=== PATIENT | male | born 1950 | race African-American/Black ===

== ENCOUNTER 2020-10-02 18:46 | Emergency (ER) | payer MEDICAID, MEDICARE ==
[~2020-10-02] VITALS: Ht 165.1 cm; Wt 64.0 kg
[2020-10-02 20:21] LABS: BASOPHILS % 1.7 % (0.0-2.0); EOSINOPHILS % 0.6 % (0.0-5.0); HEMATOCRIT. 44.3 % (42.0-52.0); HEMOGLOBIN. 14.7 g/dL (14.0-18.0); LYMPHOCYTES % 43.3 % (20.0-50.0); MEAN CORPUSCULAR HEMOGLOBIN 28.2 pg (28.0-32.0); MONOCYTES % 8.7 % (2.0-8.0); NEUTROPHILS % 45.7 % (40.0-76.0); PLATELET 224 x1000/uL (130-400); RED BLOOD CELL COUNT 5.22 mill/uL (4.7-6.1); RED CELL DISTRIBUTION WIDTH 20.5 % (11.6-14.6)
[2020-10-02 20:27] LABS: CHLORIDE 115 mEq/L (98-107)
[2020-10-02 20:42] LABS: ETHANOL BLOOD 299 mg/dL
[2020-10-02] MEDS ORDERED: LORAZEPAM 2MG/ML CPJ IM ONE (21:30)
[2020-10-02] MEDS ORDERED: HALOPERIDOL LACTATE 5MG/ML VIAL IM ONE (21:30)
[2020-10-02 21:33] LABS: CLARITY URINE CLEAR (CLEAR); COLOR URINE YELLOW (YELLOW); KETONES URINE NEGATIVE (NEGATIVE); LEUKOCYTE ESTERASE URINE NEGATIVE (NEGATIVE); NITRITE URINE NEGATIVE (NEGATIVE); OCCULT BLOOD URINE NEGATIVE (NEGATIVE); PROTEIN URINE NEGATIVE (NEGATIVE); SPECIFIC GRAVITY URINE 1.002 (1.005-1.030); UROBILINOGEN URINE 0.2 E.U./dL (0.2-1.0)
[2020-10-02 21:42] LABS: *BARBITURATES SCREEN URINE NEGATIVE (NEGATIVE)
[2020-10-02 21:43] LABS: *AMPHETAMINES SCREEN URINE NEGATIVE (NEGATIVE); *BENZODIAZEPINES SCREEN URINE NEGATIVE (NEGATIVE); *COCAINE SCREEN URINE NEGATIVE (NEGATIVE); CANNABINOID URINE SCREEN NEGATIVE (NEGATIVE); METHADONE URINE SCREEN NEGATIVE (NEGATIVE); OPIATES URINE SCREEN NEGATIVE (NEGATIVE); PHENCYCLIDINE URINE SCREEN NEGATIVE (NEGATIVE)
[2020-10-03] MEDS ORDERED: OLANZAPINE 10 MG/VIAL IM ONE
[2020-10-03 11:36] VITALS: BP 154/95
== END 2020-10-03 11:42 | disposition home or self-care (01) ==
LOC: ER 18:46
DX: T51.0X1A Toxic effect of ethanol, accidental (unintentional), initial encounter (principal); R45.851 Suicidal ideations; Y90.8 Blood alcohol level of 240 mg/100 ml or more; Z78.1 Physical restraint status; Y92.018 Other place in single-family (private) house as the place of occurrence of the external cause
CPT/HCPCS: 36415; 80053; 80305; 80307; 80320; 80329; 81003; 85025; 87426; 96372; 99285; J1630; J2060; J3490; G0480

== ENCOUNTER 2020-11-02 23:04 | Emergency (ER) | payer MEDICARE, OTHER ==
[~2020-11-02] VITALS: Ht 167.6 cm; Wt 71.0 kg
[2020-11-03 00:20] LABS: BASOPHILS % 0.2 % (0.0-2.0); EOSINOPHILS % 3.4 % (0.0-5.0); HEMOGLOBIN. 12.5 g/dL (14.0-18.0); LYMPHOCYTES % 61.1 % (20.0-50.0); MEAN CORPUSCULAR HEMOGLOBIN 28.6 pg (28.0-32.0); MEAN CORPUSCULAR VOLUME 84.8 fL (80.0-94.0); MEAN PLATELET VOLUME 8.6 fl (7.4-10.4); MONOCYTES % 14.7 % (2.0-8.0); NEUTROPHILS % 20.6 % (40.0-76.0); PLATELET 213 x1000/uL (130-400); RED BLOOD CELL COUNT 4.36 mill/uL (4.7-6.1); RED CELL DISTRIBUTION WIDTH 17.5 % (11.6-14.6)
[2020-11-03 00:29] LABS: CHLORIDE 113 mEq/L (98-107)
[2020-11-03 00:31] LABS: ETHANOL BLOOD 268 mg/dL
[2020-11-03 00:35] LABS: CLARITY URINE CLEAR (CLEAR); COLOR URINE YELLOW (YELLOW); KETONES URINE TRACE (NEGATIVE); LEUKOCYTE ESTERASE URINE NEGATIVE (NEGATIVE); NITRITE URINE NEGATIVE (NEGATIVE); OCCULT BLOOD URINE NEGATIVE (NEGATIVE); PH URINE 5.5 (4.5-8.0); PROTEIN URINE NEGATIVE (NEGATIVE); SPECIFIC GRAVITY URINE 1.017 (1.005-1.030); UROBILINOGEN URINE 0.2 E.U./dL (0.2-1.0)
[2020-11-03 00:51] LABS: *AMPHETAMINES SCREEN URINE NEGATIVE (NEGATIVE); CANNABINOID URINE SCREEN NEGATIVE (NEGATIVE); OPIATES URINE SCREEN NEGATIVE (NEGATIVE); PHENCYCLIDINE URINE SCREEN NEGATIVE (NEGATIVE)
[2020-11-03 00:52] LABS: *BARBITURATES SCREEN URINE NEGATIVE (NEGATIVE); *BENZODIAZEPINES SCREEN URINE PRESUMTIVE POSITIVE (NEGATIVE); *COCAINE SCREEN URINE NEGATIVE (NEGATIVE); METHADONE URINE SCREEN NEGATIVE (NEGATIVE)
[2020-11-04 10:50] VITALS: BP 130/75
== END 2020-11-03 23:59 | disposition home or self-care (01) ==
LOC: ER 23:04
DX: R45.851 Suicidal ideations (principal); E78.00 Pure hypercholesterolemia, unspecified; I10 Essential (primary) hypertension; Z20.822 Contact with and (suspected) exposure to COVID-19; Z59.0 Homelessness
CPT/HCPCS: 36415; 80053; 80305; 80307; 80320; 80329; 81003; 85025; 87426; 99285; G0480

== ENCOUNTER 2021-11-24 09:35 | Inpatient (IN) | payer MEDICARE, MEDICAID ==
[~2021-11-24] VITALS: Ht 167.6 cm; Wt 76.2 kg
[~2021-11-24 09:35] MED LIST: ATOR20TA65 PO; ELVI1TAB3 MT; MIRT45TA59 PO; VILA40TA MT
[2021-11-24] MEDS ORDERED: ONDANSETRON HCL 4MG/2ML INJ IV STA ×2 (09:42→12:26)
[2021-11-24] MEDS ORDERED: SODIUM CHLORIDE 0.9% 1,000 ML IV ONE ×2 (09:45→12:30)
[2021-11-24 10:44] LABS: BASOPHILS % 0.4 % (0.0-2.0); HEMATOCRIT. 43.5 % (42.0-52.0); HEMOGLOBIN. 13.9 g/dL (14.0-18.0); LYMPHOCYTES % 10.7 % (20.0-50.0); MEAN CORPUSCULAR HEMOGLOBIN 26.8 pg (28.0-32.0); MEAN CORPUSCULAR VOLUME 83.7 fL (80.0-94.0); MEAN PLATELET VOLUME 9.3 fl (7.4-10.4); MONOCYTES % 10.9 % (2.0-8.0); PLATELET 277 x1000/uL (130-400); RED BLOOD CELL COUNT 5.19 mill/uL (4.7-6.1); RED CELL DISTRIBUTION WIDTH 17.7 % (11.6-14.6)
[2021-11-24 10:53] LABS: CHLORIDE 91 mEq/L (98-107)
[2021-11-24] MEDS ORDERED: POTASSIUM CHLORIDE 20MEQ TABLET SR PO ONE (11:15)
[2021-11-24] MEDS ORDERED: METRONIDAZOLE 500 MG PREMIX 100 ML IV ONE (14:00)
[2021-11-24] MEDS ORDERED: CEFTRIAXONE 1 G PREMIX 50 ML IV ONE (14:00)
[2021-11-24] MEDS ORDERED: METOCLOPRAMIDE HCL 10MG/2ML VIAL IV ONE (14:00)
[2021-11-24] MEDS ORDERED: ACETAMINOPHEN 325MG TABLET PO PRN (14:30)
[2021-11-24] MEDS ORDERED: CEFTRIAXONE 1,000 MG in DEXTROSE 5% WATER 50 ML IV NR (14:45)
[2021-11-24] MEDS: ONDANSETRON HCL 4MG/2ML INJ IV PRN (14:59)
[2021-11-24] MEDS: DEXT 5%/0.45% NACL 1000ML 1,000 ML IV SCH (16:32)
[2021-11-24] MEDS ORDERED: POTASSIUM CHLORIDE INJ 40 MEQ in DEXT 5% WATER 250 ML IV ONE (17:30)
[2021-11-24 18:00] VITALS: BP 140/75
[2021-11-24] MEDS ORDERED: KCL 20MEQ/100ML X 2 FOR TOTAL KCL 40MEQ/200ML IV SCH (18:00)
[2021-11-24 20:00] VITALS: BP 131/85
[2021-11-24] MEDS: KCL 20MEQ/100ML X 2 FOR TOTAL KCL 40MEQ/200ML IV SCH (21:37)
[2021-11-24] MEDS: PIPERACILLIN/TAZOBACTAM 3.375 G in DEXTROSE 5% WATER 50 ML IV SCH (22:01)
[2021-11-25] VITALS: BP 113/56
[2021-11-25] MEDS: KCL 20MEQ/100ML X 2 FOR TOTAL KCL 40MEQ/200ML IV SCH (00:48)
[2021-11-25 04:00] VITALS: BP 121/80
[2021-11-25] MEDS: DEXT 5%/0.45% NACL 1000ML 1,000 ML IV SCH ×2 (04:00→17:42)
[2021-11-25] MEDS: PIPERACILLIN/TAZOBACTAM 3.375 G in DEXTROSE 5% WATER 50 ML IV SCH ×3 (06:00→22:51)
[2021-11-25 06:14] LABS: BASOPHILS % 0.5 % (0.0-2.0); EOSINOPHILS % 0.3 % (0.0-5.0); HEMATOCRIT. 38.5 % (42.0-52.0); HEMOGLOBIN. 12.6 g/dL (14.0-18.0); LYMPHOCYTES % 28.9 % (20.0-50.0); MEAN CORPUSCULAR VOLUME 82.7 fL (80.0-94.0); MEAN PLATELET VOLUME 8.8 fl (7.4-10.4); MONOCYTES % 9.1 % (2.0-8.0); NEUTROPHILS % 61.2 % (40.0-76.0); PLATELET 204 x1000/uL (130-400); RED BLOOD CELL COUNT 4.66 mill/uL (4.7-6.1)
[2021-11-25 08:00] VITALS: BP 117/67
[2021-11-25] MEDS ORDERED: POTASSIUM CHLORIDE 20MEQ TABLET SR PO SCH ×2 (09:00→09:30)
[2021-11-25 12:00] VITALS: BP 117/69
[2021-11-25] MEDS: POTASSIUM CHLORIDE 20MEQ TABLET SR PO SCH ×2 (12:20→17:44)
[2021-11-25 13:26] LABS: *AMPHETAMINES SCREEN URINE NEGATIVE (NEGATIVE); *BARBITURATES SCREEN URINE NEGATIVE (NEGATIVE); *BENZODIAZEPINES SCREEN URINE NEGATIVE (NEGATIVE); *COCAINE SCREEN URINE NEGATIVE (NEGATIVE); CANNABINOID URINE SCREEN NEGATIVE (NEGATIVE); METHADONE URINE SCREEN NEGATIVE (NEGATIVE); OPIATES URINE SCREEN NEGATIVE (NEGATIVE); PHENCYCLIDINE URINE SCREEN NEGATIVE (NEGATIVE)
[2021-11-25] MEDS: ONDANSETRON HCL 4MG/2ML INJ IV PRN ×2 (13:32→20:00)
[2021-11-25 17:51] LABS: BG BASE EXCESS 13.2 mmol/L (-2.0-2.0); BG CARBOXYHEMOGLOBIN 0.9 % (0.5-1.5); BG DEOXYHEMOGLOBIN 3.5 % (0.0-5.0); BG FRACTION INSPIRED OXYGEN 21; BG HCO3 ACT 35.7 mmol/L (22.0-26.0); BG METHEMOGLOBIN 0.2 % (0.0-1.5); BG OXYGEN SATURATION 96.5 % (92.0-98.5); BG OXYHEMOGLOBIN 95.4 % (94.0-97.0); BG PH 7.602 (7.350-7.450); BG PO2 76.9 mmHg (75.0-100.0); BG SAMPLE SITE RIGHT BRACHIAL; BG VENT MODE ROOM AIR
[2021-11-25] MEDS ORDERED: MORPHINE SULFATE 2 MG/ML CPJ (NOT FOR IM USE) IV NR (18:15)
[2021-11-25 20:00] VITALS: BP 137/88
[2021-11-25 22:08] LABS: HEPATITIS B SURFACE ANTIGEN NEGATIVE
[2021-11-26] VITALS: BP 128/77
[2021-11-26 04:00] VITALS: BP 112/54
[2021-11-26] MEDS: PIPERACILLIN/TAZOBACTAM 3.375 G in DEXTROSE 5% WATER 50 ML IV SCH ×3 (06:02→22:00)
[2021-11-26 06:06] LABS: BASOPHILS % 0.7 % (0.0-2.0); EOSINOPHILS % 2.3 % (0.0-5.0); HEMATOCRIT. 36.9 % (42.0-52.0); LYMPHOCYTES % 36.3 % (20.0-50.0); MEAN PLATELET VOLUME 9.1 fl (7.4-10.4); MONOCYTES % 12.6 % (2.0-8.0); NEUTROPHILS % 48.1 % (40.0-76.0); PLATELET 160 x1000/uL (130-400); RED BLOOD CELL COUNT 4.44 mill/uL (4.7-6.1)
[2021-11-26 06:40] LABS: CHLORIDE 99 mEq/L (98-107)
[2021-11-26 06:50] LABS: PHOSPHORUS 3.1 mg/dL (2.5-4.9)
[2021-11-26 08:00] VITALS: BP 109/84
[2021-11-26] MEDS ORDERED: POTASSIUM CHLORIDE 20MEQ TABLET SR PO SCH (09:00)
[2021-11-26] MEDS: POTASSIUM CHLORIDE 20MEQ TABLET SR PO SCH (09:39)
[2021-11-26] MEDS: ONDANSETRON HCL 4MG/2ML INJ IV PRN (11:55)
[2021-11-26 12:00] VITALS: BP 99/63
[2021-11-26 16:00] VITALS: BP 129/81
[2021-11-26 17:14] LABS: CHLORIDE 99 mEq/L (98-107)
[2021-11-26 20:00] VITALS: BP 144/90
[2021-11-26] MEDS: METRONIDAZOLE 500MG TABLET PO SCH (22:33)
[2021-11-27] VITALS: BP 130/81
[2021-11-27 04:00] VITALS: BP 135/82
[2021-11-27] MEDS: METOCLOPRAMIDE HCL 10MG/2ML VIAL IV SCH ×3 (06:00→13:35)
[2021-11-27] MEDS: PIPERACILLIN/TAZOBACTAM 3.375 G in DEXTROSE 5% WATER 50 ML IV SCH (06:00)
[2021-11-27 06:39] LABS: BASOPHILS % 0.6 % (0.0-2.0); EOSINOPHILS % 3.1 % (0.0-5.0); HEMATOCRIT. 37.6 % (42.0-52.0); HEMOGLOBIN. 12.5 g/dL (14.0-18.0); LYMPHOCYTES % 40.2 % (20.0-50.0); MEAN CORPUSCULAR HEMOGLOBIN 27.6 pg (28.0-32.0); MEAN CORPUSCULAR VOLUME 83.1 fL (80.0-94.0); MEAN PLATELET VOLUME 9.2 fl (7.4-10.4); MONOCYTES % 10.6 % (2.0-8.0); NEUTROPHILS % 45.5 % (40.0-76.0); PLATELET 180 x1000/uL (130-400); RED BLOOD CELL COUNT 4.52 mill/uL (4.7-6.1); RED CELL DISTRIBUTION WIDTH 18.3 % (11.6-14.6)
[2021-11-27 07:26] LABS: CHLORIDE 102 mEq/L (98-107)
[2021-11-27 07:33] LABS: PHOSPHORUS 4.1 mg/dL (2.5-4.9)
[2021-11-27 08:00] VITALS: BP 140/83
[2021-11-27] MEDS: METRONIDAZOLE 500MG TABLET PO SCH ×3 (09:04→21:45)
[2021-11-27] MEDS: POTASSIUM CHLORIDE 20MEQ TABLET SR PO SCH ×5 (09:06→21:46)
[2021-11-27 12:00] VITALS: BP 94/69
[2021-11-27] MEDS: LEVOFLOXACIN 500MG TABLET PO SCH (13:34)
[2021-11-27] MEDS: METOCLOPRAMIDE 10MG/10 ML UDC PO SCH ×2 (15:44→21:45)
[2021-11-27 16:00] VITALS: BP 119/90
[2021-11-27 20:00] VITALS: BP 90/53
[2021-11-28] VITALS: BP 101/56
[2021-11-28] MEDS: METOCLOPRAMIDE 10MG/10 ML UDC PO SCH ×4 (03:33→19:51)
[2021-11-28 04:00] VITALS: BP 127/65
[2021-11-28] MEDS: METRONIDAZOLE 500MG TABLET PO SCH ×3 (07:38→21:45)
[2021-11-28] MEDS: POTASSIUM CHLORIDE 20MEQ TABLET SR PO SCH ×3 (07:39→13:27)
[2021-11-28 08:00] VITALS: BP 144/81
[2021-11-28] MEDS: LEVOFLOXACIN 500MG TABLET PO SCH (11:48)
[2021-11-28 12:00] VITALS: BP 124/68
[2021-11-28 12:36] LABS: HEMATOCRIT. 37.1 % (42.0-52.0); HEMOGLOBIN. 12.1 g/dL (14.0-18.0); MEAN CORPUSCULAR HEMOGLOBIN 27.4 pg (28.0-32.0); MEAN CORPUSCULAR VOLUME 84.1 fL (80.0-94.0); MEAN PLATELET VOLUME 8.9 fl (7.4-10.4); PLATELET 175 x1000/uL (130-400); RED BLOOD CELL COUNT 4.41 mill/uL (4.7-6.1); RED CELL DISTRIBUTION WIDTH 18.5 % (11.6-14.6)
[2021-11-28 12:45] LABS: CHLORIDE 110 mEq/L (98-107)
[2021-11-28 12:50] LABS: PHOSPHORUS 2.6 mg/dL (2.5-4.9)
[2021-11-28 14:46] LABS: PLATELET ESTIMATE NORMAL
[2021-11-28 16:37] VITALS: BP 121/80
[2021-11-28 20:00] VITALS: BP 133/91
[2021-11-29] VITALS: BP 141/93
[2021-11-29] MEDS: METOCLOPRAMIDE 10MG/10 ML UDC PO SCH ×2 (01:57→08:07)
[2021-11-29 04:00] VITALS: BP 145/97
[2021-11-29] MEDS: METRONIDAZOLE 500MG TABLET PO SCH ×2 (05:35→15:38)
[2021-11-29 07:56] LABS: BASOPHILS % 0.7 % (0.0-2.0); EOSINOPHILS % 2.7 % (0.0-5.0); HEMATOCRIT. 38.6 % (42.0-52.0); HEMOGLOBIN. 12.4 g/dL (14.0-18.0); LYMPHOCYTES % 38.8 % (20.0-50.0); MEAN CORPUSCULAR HEMOGLOBIN 27.3 pg (28.0-32.0); MEAN CORPUSCULAR VOLUME 84.6 fL (80.0-94.0); MONOCYTES % 14.6 % (2.0-8.0); NEUTROPHILS % 43.2 % (40.0-76.0); PLATELET 179 x1000/uL (130-400); RED BLOOD CELL COUNT 4.56 mill/uL (4.7-6.1)
[2021-11-29 08:00] VITALS: BP 130/83
[2021-11-29 08:11] LABS: CHLORIDE 109 mEq/L (98-107)
[2021-11-29 08:24] LABS: PHOSPHORUS 3.6 mg/dL (2.5-4.9)
[2021-11-29] MEDS: LEVOFLOXACIN 500MG TABLET PO SCH (11:14)
[2021-11-29 12:00] VITALS: BP 139/91
[2021-11-29] MEDS ORDERED: LEVO500T90 PO (12:58)
[2021-11-29] MEDS ORDERED: METR-167 PO (12:58)
[2021-11-29] MEDS ORDERED: METO10TA3 MT (13:41)
[2021-11-29] MEDS ORDERED: ONDA4TAB50 MT (13:41)
[2021-11-29 16:00] VITALS: BP 134/89
[2021-11-29 16:26] VITALS: BP 139/91
[2021-11-29] MEDS ORDERED: METOCLOPRAMIDE HCL 10MG/2ML VIAL IV SCH (18:00)
== END 2021-11-29 17:35 | disposition home or self-care (01) | DRG 391 ==
LOC: ER 09:35 → 6EST 14:13 → ENRESERV 17:08
PROVIDERS: ADMIT Internal Medicine; ATTEND Internal Medicine
DX: K57.32 Diverticulitis of large intestine without perforation or abscess without bleeding (principal); N17.0 Acute kidney failure with tubular necrosis; E87.3 Alkalosis; E87.6 Hypokalemia; I10 Essential (primary) hypertension; F32.A Depression, unspecified; K52.9 Noninfective gastroenteritis and colitis, unspecified; E87.8 Other disorders of electrolyte and fluid balance, not elsewhere classified; E78.00 Pure hypercholesterolemia, unspecified; K74.60 Unspecified cirrhosis of liver; F41.9 Anxiety disorder, unspecified; F10.10 Alcohol abuse, uncomplicated; M41.84 Other forms of scoliosis, thoracic region; Z82.49 Family history of ischemic heart disease and other diseases of the circulatory system; Z90.81 Acquired absence of spleen; Z87.891 Personal history of nicotine dependence; Z79.899 Other long term (current) drug therapy
CPT/HCPCS: 36415; 36600; 71045; 74018; 74176; 76700; 80048; 80053; 80076; 80305; 82375; 82805; 83735; 84100; 84132; 85025; 86705; 86709; 86803; 87340; 87493; 93005; 99291; J0696; J2405; J2543; J2765; J3480; J3490; J7030; J7060; J8597

== ENCOUNTER 2021-12-15 23:02 | Inpatient (IN) | payer MEDICAID, MEDICARE ==
[~2021-12-15] VITALS: Ht 167.6 cm; Wt 65.3 kg
[~2021-12-15 23:02] MED LIST changes: +LEVO500T90 PO; +METO10TA3 MT; +METR-167 PO; +ONDA4TAB50 MT
[2021-12-15] MEDS ORDERED: ONDANSETRON HCL 4MG/2ML INJ IV STA (23:21)
[2021-12-15] MEDS ORDERED: VISCOUS LIDOCAINE 2% 15 ML UDC PO STA (23:21)
[2021-12-15] MEDS ORDERED: PANTOPRAZOLE SODIUM 40 MG/VIAL IV STA (23:21)
[2021-12-15] MEDS ORDERED: MAGNESIUM/ALUMINUM HYDROXIDE/SIMETHICONE 30ML UDC PO STA (23:21)
[2021-12-15] MEDS ORDERED: ACETAMINOPHEN 325MG TABLET PO STA (23:21)
[2021-12-15] MEDS ORDERED: SODIUM CHLORIDE 0.9% 1,000 ML IV ONE (23:30)
[2021-12-15 23:56] LABS: BASOPHILS % 0.6 % (0.0-2.0); CHLORIDE 93 mEq/L (98-107); EOSINOPHILS % 0.3 % (0.0-5.0); HEMATOCRIT. 45.6 % (42.0-52.0); HEMOGLOBIN. 14.6 g/dL (14.0-18.0); LYMPHOCYTES % 22.4 % (20.0-50.0); MEAN CORPUSCULAR HEMOGLOBIN 26.2 pg (28.0-32.0); MEAN CORPUSCULAR VOLUME 82.1 fL (80.0-94.0); MEAN PLATELET VOLUME 9.7 fl (7.4-10.4); MONOCYTES % 11.4 % (2.0-8.0); NEUTROPHILS % 65.3 % (40.0-76.0); PLATELET 331 x1000/uL (130-400); RED BLOOD CELL COUNT 5.55 mill/uL (4.7-6.1); RED CELL DISTRIBUTION WIDTH 18.2 % (11.6-14.6)
[2021-12-16] LABS: INR 1.1; PROTHROMBIN TIME 11.8 sec (9.6-11.0)
[2021-12-16 00:03] LABS: ETHANOL BLOOD < 10 mg/dL
[2021-12-16] MEDS ORDERED: SODIUM CHLORIDE 0.9% 1,000 ML IV ONE (01:00)
[2021-12-16] MEDS ORDERED: POTASSIUM CHLORIDE INJ 40 MEQ in DEXT 5% WATER 250 ML IV ONE (01:00)
[2021-12-16] MEDS ORDERED: SODIUM BICARBONATE 8.4% 1 MEQ/ML 50ML SYR IV NR (01:00)
[2021-12-16] MEDS: KCL 20MEQ/100ML X 2 FOR TOTAL KCL 40MEQ/200ML IV SCH ×2 (02:19→03:00)
[2021-12-16] MEDS ORDERED: POTASSIUM CHLORIDE 20MEQ TABLET SR PO ONE (02:45)
[2021-12-16] MEDS ORDERED: ONDA4TAB50 MT ×2 (04:47)
[2021-12-16] MEDS ORDERED: DICY10CA88 MT (04:47)
[2021-12-16] MEDS ORDERED: MAG355OR21 MT (04:47)
[2021-12-16] MEDS ORDERED: ACET-2708 MT (04:47)
[2021-12-16] MEDS ORDERED: MORPHINE SULFATE 4 MG/ML CPJ (NOT FOR IM USE) IV NR (05:30)
[2021-12-16 09:36] LABS: CLARITY URINE CLEAR (CLEAR); COLOR URINE YELLOW (YELLOW); KETONES URINE TRACE (NEGATIVE); LEUKOCYTE ESTERASE URINE TRACE (NEGATIVE); NITRITE URINE NEGATIVE (NEGATIVE); OCCULT BLOOD URINE NEGATIVE (NEGATIVE); PH URINE 8.5 (4.5-8.0); PROTEIN URINE TRACE (NEGATIVE); SPECIFIC GRAVITY URINE 1.024 (1.005-1.030)
[2021-12-16 10:29] LABS: *AMPHETAMINES SCREEN URINE NEGATIVE (NEGATIVE); *BARBITURATES SCREEN URINE NEGATIVE (NEGATIVE); *BENZODIAZEPINES SCREEN URINE NEGATIVE (NEGATIVE); *COCAINE SCREEN URINE NEGATIVE (NEGATIVE); CANNABINOID URINE SCREEN NEGATIVE (NEGATIVE); METHADONE URINE SCREEN NEGATIVE (NEGATIVE); OPIATES URINE SCREEN PRESUMTIVE POSITIVE (NEGATIVE); PHENCYCLIDINE URINE SCREEN NEGATIVE (NEGATIVE)
[2021-12-16] MEDS: PANTOPRAZOLE SODIUM 40 MG/VIAL IV SCH (10:53)
[2021-12-16] MEDS: POTASSIUM CHLORIDE 20MEQ TABLET SR PO SCH (10:53)
[2021-12-16] MEDS: DEXT 5%/0.45% NACL 1000ML 1,000 ML IV SCH ×2 (10:54→23:44)
[2021-12-16 12:00] VITALS: BP_SYST 115; BP_DIAS 64; BP_DIAS 71
[2021-12-16] MEDS ORDERED: POTASSIUM CHLORIDE 20MEQ TABLET SR PO NR (14:00)
[2021-12-16 16:00] VITALS: BP 111/70
[2021-12-16 20:00] VITALS: BP 110/65
[2021-12-16 23:47] VITALS: BP 117/59
[2021-12-17 04:00] VITALS: BP 114/79
[2021-12-17 08:00] VITALS: BP 111/71
[2021-12-17] MEDS: POTASSIUM CHLORIDE 20MEQ TABLET SR PO SCH (09:08)
[2021-12-17] MEDS: PANTOPRAZOLE SODIUM 40 MG/VIAL IV SCH (09:09)
[2021-12-17 11:32] LABS: CHLORIDE 105 mEq/L (98-107)
[2021-12-17] MEDS ORDERED: OMEP40CA20 MT (11:42)
[2021-12-17 12:00] VITALS: BP 122/84
[2021-12-17 14:48] VITALS: BP 122/84
[2021-12-17 16:30] VITALS: BP 118/69
== END 2021-12-17 17:18 | disposition home or self-care (01) | DRG 249 ==
LOC: ER 23:02 → 6WST 12-16 05:14 → EDBEDREQTM 12-16 05:19 → EDBEDREQ 12-16 05:19 → ENRESERV 12-16 09:49 → ER 12-16 10:24
PROVIDERS: ADMIT Internal Medicine; ATTEND Internal Medicine
DX: K52.9 Noninfective gastroenteritis and colitis, unspecified (principal); N17.0 Acute kidney failure with tubular necrosis; K74.60 Unspecified cirrhosis of liver; K29.70 Gastritis, unspecified, without bleeding; F10.10 Alcohol abuse, uncomplicated; E87.6 Hypokalemia; E78.00 Pure hypercholesterolemia, unspecified; Z82.49 Family history of ischemic heart disease and other diseases of the circulatory system; Z90.81 Acquired absence of spleen
CPT/HCPCS: 36415; 74176; 80048; 80053; 80305; 80320; 81003; 83605; 83735; 84132; 85025; 99285; C9113; J2270; J2405; J3480; J3490; J7030; G0480

== ENCOUNTER 2022-12-11 01:36 | Emergency (ER) | payer MEDICARE, MEDICAID ==
[~2022-12-11] VITALS: Ht 167.6 cm; Wt 73.0 kg
[~2022-12-11 01:36] MED LIST changes: +ACET-2708 MT; +DICY10CA88 MT; -LEVO500T90 PO; -METO10TA3 MT; -METR-167 PO; +OMEP20CA14 PO; +SUCR1ORA15 PO
[2022-12-11 01:45] VITALS: BP 139/86; PULSE 99; RESP 18; TEMP 97.9; O2SAT 99
[2022-12-11] MEDS ORDERED: ONDANSETRON 4MG ODT PO STA (01:51)
[2022-12-11] MEDS ORDERED: MAGNESIUM/ALUMINUM HYDROXIDE/SIMETHICONE 30ML UDC PO STA (01:51)
[2022-12-11 02:54] LABS: CHLORIDE 111 mEq/L (98-107); INDEX HEMOLYSI 1 (1-3); INDEX ICTERIC 1 (1-4); INDEX LIPEMIC 1 (1-3); POTASSIUM 3.4 mEq/L (3.5-5.1); SODIUM 146 mEq/L (136-145)
[2022-12-11 02:56] LABS: PROTHROMBIN TIME 11.1 sec (9.6-11.0)
[2022-12-11 03:00] LABS: BASOPHILS % 2.6 % (0.0-2.0); EOSINOPHILS % 3.1 % (0.0-5.0); HEMATOCRIT. 38.6 % (42.0-52.0); HEMOGLOBIN. 12.7 g/dL (14.0-18.0); LYMPHOCYTES % 32.8 % (20.0-50.0); MEAN CORPUSCULAR HEMOGLOBIN 27.6 pg (28.0-32.0); MEAN CORPUSCULAR HGB CONC 32.7 g/dL (31.0-37.0); MEAN CORPUSCULAR VOLUME 84.2 fL (80.0-94.0); MEAN PLATELET VOLUME 8.5 fl (7.4-10.4); MONOCYTES % 8.9 % (2.0-8.0); NEUTROPHILS % 52.6 % (40.0-76.0); PLATELET 318 x1000/uL (130-400); RED BLOOD CELL COUNT 4.59 mill/uL (4.7-6.1); RED CELL DISTRIBUTION WIDTH 18.6 % (11.6-14.6); WHITE BLOOD COUNT 3.2 x1000/uL (4.5-11.0)
[2022-12-11 03:03] LABS: ALANINE AMINOTRANSFERASE 37 IU/L (13-61); ALBUMIN 3.8 g/dL (3.4-5.0); ASPARTATE AMINOTRANSFERASE 40 IU/L (15-37); BILIRUBIN TOTAL 0.8 mg/dL (0.1-1.0); CALCIUM 8.7 mg/dL (8.5-10.1); CARBON DIOXIDE 24 mEq/L (21-32); CREATININE 1.1 mg/dL (0.6-1.3); ETHANOL BLOOD 53 mg/dL (-10); GLUCOSE 97 mg/dL (70-105); PROTEIN TOTAL 7.3 g/dL (6.0-8.3); UREA NITROGEN BLOOD 12 mg/dL (7-21)
[2022-12-11] MEDS ORDERED: THIA50TA12 MT (04:15)
[2022-12-11] MEDS ORDERED: MAG355OR21 MT (04:15)
[2022-12-11] MEDS ORDERED: ONDA4TAB50 MT (04:15)
== END 2022-12-11 04:29 | disposition home or self-care (01) ==
LOC: ER 01:40
DX: K29.70 Gastritis, unspecified, without bleeding (principal); E78.00 Pure hypercholesterolemia, unspecified; Z90.81 Acquired absence of spleen
CPT/HCPCS: 80053; 80320; 83690; 85025; 85610; 36415; 71045; 93005; 99285; Q0162; G0480